=== PATIENT | female | born 1940 | race African-American/Black ===

== ENCOUNTER 2020-07-21 15:09 | Emergency (ER) | payer MEDICARE | END 2020-07-21 15:43 | disposition left against medical advice (07) | LOC: ER 15:09 | DX: Z53.21 Procedure and treatment not carried out due to patient leaving prior to being seen by health care provider (principal) ==

== ENCOUNTER 2023-12-21 16:37 | Emergency (ER) | payer MEDICARE ==
[~2023-12-21] VITALS: Ht 160 cm; Wt 75.0 kg
[2023-12-21 16:57] VITALS: O2SAT 96
[2023-12-21] MEDS ORDERED: DICL100G58 TP (17:58)
[2023-12-21] MEDS ORDERED: LIDO700A15 TP (17:58)
[2023-12-21] MEDS: KETOROLAC 30MG/ML VIAL IM ONE (18:26)
[2023-12-21 18:38] VITALS: BP 142/88; PULSE 87; RESP 18; TEMP 97.7
== END 2023-12-21 19:03 | disposition home or self-care (01) ==
LOC: ER 16:37
DX: M54.32 Sciatica, left side (principal); M54.31 Sciatica, right side; I10 Essential (primary) hypertension; Z98.890 Other specified postprocedural states
CPT/HCPCS: 99283; 96372; J1885

== ENCOUNTER 2025-01-31 05:32 | Emergency (ER) | payer MEDICARE ==
[~2025-01-31] VITALS: Ht 154.9 cm; Wt 66.0 kg
[~2025-01-31 05:32] MED LIST: DICL100G58 TP; LIDO-53 TP
[2025-01-31 05:39] VITALS: O2SAT 96
[2025-01-31 06:15] LABS: HEMATOCRIT. 35.5 % (36.0-48.0); HEMOGLOBIN. 11.0 g/dL (12.0-16.0); MEAN PLATELET VOLUME 8.4 fl (7.4-10.4); PLATELET 235 x1000/uL (130-400); RED BLOOD CELL COUNT 4.65 mill/uL (4.2-5.4); RED CELL DISTRIBUTION WIDTH 17.8 % (11.6-14.6)
[2025-01-31] MEDS ORDERED: ACETAMINOPHEN 325MG TABLET PO ONE (06:15)
[2025-01-31 06:30] LABS: CREATININE 0.9 mg/dL (0.6-1.0); UREA NITROGEN BLOOD 11 mg/dL (9-23)
[2025-01-31 06:45] LABS: ASPARTATE AMINOTRANSFERASE 15 IU/L (<34); BILIRUBIN DIRECT 0.2 mg/dL (<=3.0); BILIRUBIN TOTAL 0.4 mg/dL (0.1-1.0); PROTEIN TOTAL 7.3 g/dL (6.0-8.3)
[2025-01-31] MEDS ORDERED: POTASSIUM CHLORIDE 20MEQ/PACKET PO ONE (07:30)
[2025-01-31] MEDS ORDERED: LACT1CAP56 MT (09:07)
[2025-01-31 09:13] LABS: EOSINOPHILS % MANUAL 1.0 % (0.0-5.0); LYMPHOCYTES % MANUAL 73.0 % (20.0-60.0); NEUTROPHILS % MANUAL 26.0 % (45.0-75.0); PLATELET ESTIMATE NORMAL
[2025-01-31 10:12] VITALS: BP 145/80; PULSE 82; RESP 20; TEMP 36.7; O2SAT 96
== END 2025-01-31 10:14 | disposition home or self-care (01) ==
LOC: ER 06:07
DX: R10.9 Unspecified abdominal pain (principal); R19.7 Diarrhea, unspecified; E87.6 Hypokalemia; I10 Essential (primary) hypertension
CPT/HCPCS: 36415; 74176; 80048; 80076; 85025; 93005; 99284